=== PATIENT | female | born 1995 | race African-American/Black ===

== ENCOUNTER 2016-11-09 22:15 | Emergency (ER) | payer OTHER ==
[~2016-11-09] VITALS: Ht 154.9 cm; Wt 73.5 kg
[2016-11-09 22:33] VITALS: BP 126/78; PULSE 102; RESP 16; TEMP 98.5; O2SAT 98
[2016-11-09] MEDS ORDERED: SODIUM CHLORIDE 0.9% FLUSH 5 ML FLUSH IVF PRN (22:45)
--- NOTE | 2016-11-09 22:54 | PD ---
HPI Chief Complaint: Psychiatric Symptoms Time Seen by Provider: 22:49 Travel History International Travel<30 days: No Contact w/Intl Traveler<30days: No Traveled to known affect area: No History of Present Illness HPI 21-year-old female here as a Alcazar act. Patient apparently got into an argument and attempted to kill herself by overdosing on Tylenol approximately 30 minutes prior to arrival. Unknown how many she took, patient did not count and cannot estimate. She denies any other ingestion. She denies any alcohol use, other symptoms. No nausea, vomiting. She is asymptomatic at this time and wants to go home. Patient repeatedly states "I'm fine" and will not answer questions about depression, suicidal ideation, delusions or hallucinations. PFSH Past Medical History Asthma: Yes Diminished Hearing: No Respiratory: Yes Immunizations Current: Yes Tetanus Vaccination: Unknown Influenza Vaccination: No ?: Not LMP: LAST WEEK Past Surgical History Tonsillectomy: Yes (TONSILS AND ADENOIDS) Social History Alcohol Use: Yes (occ) Tobacco Use: No Substance Use: No Allergies-Medications (Allergen,Severity, Reaction): Coded Allergies: No Known Allergies (Unverified , 11/09/16) Reported Meds & Prescriptions Reported Meds & Active Scripts Active Active Prescriptions or Reported Medications Unobtainable Review of Systems ROS Limitations: Uncooperative Physical Exam Exam Limitations: Uncooperative Narrative GENERAL: female in no acute distress SKIN: Warm and dry. HEAD: Normocephalic. EYES: Pupils equal and round. 4 mm. No scleral icterus. No injection or drainage. ENT: No nasal bleeding or discharge. Mucous membranes pink and moist. NECK: Supple CARDIOVASCULAR: Regular rate and rhythm. No murmur appreciated. RESPIRATORY: No accessory muscle use. Clear to auscultation. Breath sounds equal bilaterally. GASTROINTESTINAL: Abdomen soft, non-tender, nondistended. MUSCULOSKELETAL: Normal gait NEUROLOGICAL: Awake and alert. Motor grossly within normal limits. Normal speech. PSYCHIATRIC: Blunted mood and affect with poor insight and judgment. Poor eye contact. Refuses to answer questions about suicidal ideation, delusions or hallucinations. Data Data Last Documented VS Vital Signs Date Time Temp Pulse Resp B/P Pulse Ox O2 Delivery O2 Flow Rate FiO2 11/09/16 23:00 16 100 Room Air 11/09/16 22:35 102 11/09/16 22:33 98.5 126/78 Orders Electrocardiogram (2/3/17 22:33) Alcohol (Ethanol) (11/09/16 22:33) Beta Hcg (Quant/Titer) (11/09/16 22:33) Complete Blood Count With Diff (11/09/16 22:33) Comprehensive Metabolic Panel (11/09/16 22:33) Drug Screen, Random Urine (11/09/16 22:33) Salicylates (Aspirin) (11/09/16 22:33) Tylenol (Acetaminophen) (11/09/16 22:33) Iv Access Insert/Monitor (11/09/16 22:33) Ecg Monitoring (11/09/16 22:33) Oximetry (11/09/16 22:33) Sodium Chloride 0.9% Flush (Ns Flush) (11/09/16 22:45) Psych Screen (11/09/16 22:33) Tylenol (Acetaminophen) (11/10/16 01:45) Ondansetron Inj (Zofran Inj) (11/10/16 01:15) Ondansetron Inj (Zofran Inj) (11/10/16 02:00) Labs Laboratory Tests Test 11/09/16 11/10/16 22:55 01:45 White Blood Count 5.9 TH/MM3 Red Blood Count 4.37 MIL/MM3 Hemoglobin 13.4 GM/DL Hematocrit 39.3 % Mean Corpuscular Volume 90.0 FL Mean Corpuscular Hemoglobin 30.6 PG Mean Corpuscular Hemoglobin 34.1 % Concent Red Cell Distribution Width 13.6 % Platelet Count 304 TH/MM3 Mean Platelet Volume 8.5 FL Neutrophils (%) (Auto) 55.6 % Lymphocytes (%) (Auto) 35.4 % Monocytes (%) (Auto) 8.1 % Eosinophils (%) (Auto) 0.7 % Basophils (%) (Auto) 0.2 % Neutrophils # (Auto) 3.3 TH/MM3 Lymphocytes # (Auto) 2.1 TH/MM3 Monocytes # (Auto) 0.5 TH/MM3 Eosinophils # (Auto) 0.0 TH/MM3 Basophils # (Auto) 0.0 TH/MM3 CBC Comment DIFF FINAL Differential Comment Salicylates Level LESS THAN 1.7 MG/DL Urine Opiates Screen NEG Urine Barbiturates Screen NEG Urine Amphetamines Screen NEG Urine Benzodiazepines Screen NEG Urine Cocaine Screen NEG Urine Cannabinoids Screen POS Sodium Level 141 MEQ/L Potassium Level 3.4 MEQ/L Chloride Level 106 MEQ/L Carbon Dioxide Level 28.5 MEQ/L Anion Gap 7 MEQ/L Blood Urea Nitrogen 6 MG/DL Creatinine 0.67 MG/DL Estimat Glomerular Filtration 136 ML/MIN Rate Random Glucose 88 MG/DL Calcium Level 8.8 MG/DL Total Bilirubin 0.5 MG/DL Aspartate Amino Transf 11 U/L (AST/SGOT) Alanine Aminotransferase 15 U/L (ALT/SGPT) Alkaline Phosphatase 76 U/L Total Protein 7.7 GM/DL Albumin 3.7 GM/DL Human Chorionic Gonadotropin, LESS THAN 1 Quant MIU/ML Acetaminophen Level 77.3 MCG/ML 39.7 MCG/ML Ethyl Alcohol Level LESS THAN 3 MG/DL MDM Medical Decision Making Medical Screen Exam Complete: Yes Emergency Medical Condition: Yes Medical Record Reviewed: Yes Differential Diagnosis 21-year-old female here as a Alcazar act after Tylenol overdose in attempt to kill herself 30 minutes prior to arrival. Differential includes Tylenol overdose, coingestion, alcohol intoxication, just a reaction, depression, bipolar disorder, substance induced mood disorder. Narrative Course Patient placed on monitor, IV established and blood obtained. Twelve-lead EKG shows sinus rhythm without notable ST or T-wave abnormalities and normal intervals. QRS 87, QTC 392. CBC, CMP, beta Quant, blood alcohol level, aspirin , Tylenol level, urine drug screen obtained and notable for Tylenol level LXXVII.3 and positive cannabinoids. Tylenol level was rechecked at the 4 hour interval from her congestion and has decreased to 39.7. Patient is medically clear for psychiatric evaluation. Diagnosis Primary Impression: Tylenol overdose Qualified Code: T39.1X2A - Tylenol overdose, intentional self-harm, initial encounter Additional Impressions: Suicidal ideation Depression Marijuana abuse Scripts No Active Prescriptions or Reported Meds Damari Marti MD Nov 09, 2016 22:54
[2016-11-09 23:00] VITALS: RESP 16; O2SAT 100
[2016-11-09 23:24] LABS: AUTOMATED NEUTROPHIL # 3.3 TH/MM3 (1.8-7.7); BASOPHIL % 0.2 % (0.0-2.0); EOSINOPHIL % 0.7 % (0.0-4.0); HEMATOCRIT 39.3 % (35.0-46.0); HEMO FLAGS DIFF FINAL; LYMPH % 35.4 % (9.0-44.0); LYMPHOCYTE # 2.1 TH/MM3 (1.0-4.8); MEAN CORPUSCULAR HEMOGLOBIN 30.6 PG (27.0-34.0); MEAN CORPUSCULAR HGB CONC 34.1 % (32.0-36.0); MONO % 8.1 % (0.0-8.0); NEUT % 55.6 % (16.0-70.0); PLATELET COUNT 304 TH/MM3 (150-450); RED BLOOD COUNT 4.37 MIL/MM3 (4.00-5.30); RED CELL DISTRIBUTION WIDTH 13.6 % (11.6-17.2); WHITE BLOOD COUNT 5.9 TH/MM3 (4.0-11.0)
[2016-11-09 23:36] LABS: AMPHETAMINE, URINE NEG (NEG); BARBITURATES, URINE NEG (NEG); COCAINE, URINE NEG (NEG)
[2016-11-09 23:51] LABS: ANION GAP 7 MEQ/L (5-15); AST (GOT) 11 U/L (16-38); BICARBONATE 28.5 MEQ/L (21.0-32.0); BLOOD UREA NITROGEN 6 MG/DL (7-18); CHLORIDE 106 MEQ/L (98-107); GLOMERULAR FILTRATION RATE 136 ML/MIN (>89); POTASSIUM 3.4 MEQ/L (3.5-5.1); SODIUM (NA) 141 MEQ/L (136-145)
[2016-11-09 23:56] LABS: ACETAMINOPHEN 77.3 MCG/ML (10.0-30.0); ALKALINE PHOSPHATASE 76 U/L (45-117); ALT (GPT) 15 U/L (9-42); BETA HCG QUANT LESS THAN 1 MIU/ML (0-5); TOTAL BILIRUBIN ADULT 0.5 MG/DL (0.2-1.0)
[2016-11-10] MEDS ORDERED: ONDANSETRON HCL 4 MG/2 ML VIAL IV PUSH ONE ×2 (01:15→02:00)
[2016-11-10 03:30] VITALS: BP 156/94; PULSE 87; RESP 18; O2SAT 97
[2016-11-10] MEDS ORDERED: PROMETHAZINE INJ 25 MG/ML VIAL IM ONE (05:15)
[2016-11-10 06:19] VITALS: BP 145/67; PULSE 70; RESP 18; TEMP 97.7; O2SAT 98
[2016-11-10 10:44] VITALS: BP 121/60; PULSE 80; RESP 18; O2SAT 98
[2016-11-10 14:00] VITALS: BP 114/87; PULSE 109; RESP 18
--- NOTE | 2016-11-10 17:22 | MB ---
cc: PATRICIO KUHN DATE OF CONSULTATION: 11/10/2016 HISTORY OF PRESENT ILLNESS This is a 21-year-old black female who was admitted under Alcazar Act because she text her boyfriend stating that she was going to kill herself. Her roommate tried to contact Ms. Smart several times about the information she received and she told her friend that the patient had took a handful of for Tylenol with the attempt an intent to kill herself. The patient also reported that she got into an argument with her ex-boyfriend and took handful of Tylenol because she was mad and angry but now she is over her anger and wants to go home study and do her homework. She claimed that it was stupid I should not have done it. She regrets it and claimed that it was dumb. She denies any suicidal and/or homicidal ideation, intentions or plan at this time. She wanted to go home. She claimed that she is willing to follow up as an outpatient if she has to. She claimed that when she was about 15 she had attempted similar type of overdose but since that time she has not done anything. The patient denies any auditory or visual hallucinations. Denies any paranoia and denied any alcohol or drug use and/or abuse. BACKGROUND HISTORY The patient was born in [place]. She was close to both of her parents. Her childhood was described as happy. She denied any physical, verbal or sexual abuse growing up. She did finish high school and she is going to the college. She denied any alcohol or drug use and/or abuse. Denied any legal difficulty. When she was about 15 she had tried to overdose but since that time she has been doing fine. Recently she got into some argument with her ex-boyfriend and took impulsively because she was mad and angry but now she claimed that she is over her anger and willing to work as an outpatient and denied any active and/or passive suicidal ideation, intentions or plans. FAMILY HISTORY Family history is positive for suicide, her uncle. Otherwise, no other psychiatric history. MENTAL STATUS EXAMINATION This is a 21-year-old black single female who was alert, oriented x3, cooperative but wanting to go home, does not want to stay in the hospital. She is willing to follow up as an outpatient. She claimed that she is not mad anymore. She realizes that she made a mistake and is not going to do it again. She denied any suicidal ideation, intentions or plan. Denied any auditory or visual hallucinations or any paranoia at this time. She seems to be of average intelligence with poor recent memory. Her insight is fair and her judgment on hypothetical situation is okay. IMPRESSION Adjustment disorder with depressed mood. RECOMMENDATIONS At this time the patient denies any suicidal ideation, intentions or plans. Denies any auditory or visual hallucinations, wants to go home. No behavior or management problem reported. In my opinion the patient does not meet the Alcazar Act criteria so I will lift the Lacazar Act and discharge the patient. We will try to call her mother. The patient wants to go to her mother if needed and willing to follow up as an outpatient. Patricio KNUTSON /2:54 PM /5:11 PM
--- NOTE | 2016-11-11 11:44 | EKG ---
Date Performed: 11/09/2016 Time Performed: 23:00:39 PTAGE: 21 years EKG: Sinus rhythm NORMAL ECG NO PREVIOUS TRACING DOCTOR: Wero Kline Interpretating Date/Time 11/11/2016 11:43:14
== END 2016-11-10 16:31 | disposition home or self-care (01) ==
LOC: NEPE 22:15 → NEPJ 11-10 16:31
DX: F43.21 Adjustment disorder with depressed mood (principal); T39.1X2A Poisoning by 4-Aminophenol derivatives, intentional self-harm, initial encounter; R45.851 Suicidal ideations; F32.9 Major depressive disorder, single episode, unspecified; F12.10 Cannabis abuse, uncomplicated; J45.909 Unspecified asthma, uncomplicated
CPT/HCPCS: 80053; 80307; 80320; 80329; 84702; 85025; 93005; 96372; 96374; 96376; 99283; J2405; J2550; G0480